=== PATIENT | male | born 1975 | race Caucasian/White ===

== ENCOUNTER 2019-02-17 14:17 | Emergency (ER) | payer BC ==
--- NOTE | 2019-02-17 14:52 | EDM.PDOC ---
ED HPI GENERAL MEDICAL PROBLEM - General Chief Complaint: Lower Extremity Injury/Pain Stated Complaint: L THIGH PAIN Time Seen by Provider: 02/17/19 14:33 Source of Information: Reports: Patient, RN Notes Reviewed - History of Present Illness INITIAL COMMENTS - FREE TEXT/NARRATIVE: 43 year old male with L upper thigh injury. Tripped participating in a kickball tournament 3 days ago with pain L mid ant. thigh. He was feeling better yesterday today, able to work light duty and than tripped again 4 hours ago stepping out of his truck. He now has severe pain L anterior mid thigh worse with any type of motion. No other pain or injury at this time. Left Thigh Pain Score (Numeric/FACES): 9 - Related Data Allergies Allergy/AdvReac Type Severity Reaction Status Date / Time Penicillins Allergy Cannot Verified 02/17/19 14:33 Remember Home Meds: Home Meds Acetaminophen/HYDROcodone [Pax 325-5 MG] 1 tab PO Q4H PRN #20 tablet 02/17/19 [Rx] Acetaminophen/HYDROcodone [Pax 325-5 MG] 1 tab PO Q4H PRN #20 tablet 02/17/19 [Rx] Past Medical History HEENT History: Reports: None Cardiovascular History: Reports: None Respiratory History: Reports: None Genitourinary History: Reports: None Neurological History: Reports: None Psychiatric History: Reports: None Endocrine/Metabolic History: Reports: None Hematologic History: Reports: None Immunologic History: Reports: None Oncologic (Cancer) History: Reports: None Dermatologic History: Reports: None - Infectious Disease History Infectious Disease History: Reports: None - Past Surgical History Head Surgeries/Procedures: Reports: None GI Surgical History: Reports: Hernia Repair/Other Musculoskeletal Surgical History: Reports: Arthroscopic Knee Other Musculoskeletal Surgeries/Procedures:: Right Knee Social & Family History - Tobacco Use Smoking Status *Q: Current Every Day Smoker Years of Tobacco use: 10 Packs/Tins Daily: 0.5 - Caffeine Use Caffeine Use: Reports: Energy Drinks - Recreational Drug Use Recreational Drug Use: No Review of Systems - Review of Systems Review Of Systems: See Below Constitutional: Denies: Chills, Fever Mouth/Throat: Reports: No Symptoms Respiratory: Reports: No Symptoms Cardiovascular: Denies: Chest Pain GI/Abdominal: Denies: Abdominal Pain, Nausea, Vomiting Musculoskeletal: Reports: Leg Pain (severe pain L ant. thigh, worse with motion) Neurological: Reports: Difficulty Walking. Denies: Numbness, Tingling, Weakness ED EXAM, GENERAL - Physical Exam Exam: See Below General Appearance: Alert, Moderate Distress Head: Atraumatic Neck: Supple Respiratory/Chest: No Respiratory Distress Cardiovascular: Regular Rate, Rhythm Extremities: Other (there is localized tenderness of the L ant. mid thigh, no visible swelling or bruising, otherwise nontender) Neurological: Alert, Oriented, No Motor/Sensory Deficits Skin Exam: Warm, Dry, Normal Color Course - Vital Signs Last Recorded V/S: Last Vital Signs Temp 97.4 F 02/17/19 14:36 Pulse 80 02/17/19 14:36 Resp 18 02/17/19 14:36 BP 139/91 H 02/17/19 14:36 Pulse Ox 99 02/17/19 14:36 - Orders/Labs/Meds Orders: Active Orders 24 hr Category Date Time Status Femur wo Cont Lt [MR] Stat Exams 02/17/19 14:53 Taken - Re-Assessments/Exams Free Text/Narrative Re-Assessment/Exam: 02/17/19 17:01 MRI shows edema through out large portion of muscle belly rectus femorus, evidence of injury compatable with tear, see Radiology report for details. Departure - Departure Time of Disposition: 16:37 Disposition: Home, Self-Care 01 Condition: Fair Clinical Impression: Injury of quadriceps muscle - Discharge Information Prescriptions: Acetaminophen/HYDROcodone [Pax 325-5 MG] 1 tab PO Q4H PRN #20 tablet PRN Reason: Pain Acetaminophen/HYDROcodone [Pax 325-5 MG] 1 tab PO Q4H PRN #20 tablet PRN Reason: Pain Instructions: Quadriceps Strain Rehab-SportsMed, Quadriceps Tendon Tear or Disruption Referrals: PCP,None [Ordering Only Provider] - Forms: ED Department Discharge Additional Instructions: Nadeem wrap L thigh until pain resolving, Ice packs and elevation as needed for swelling. tylenol during the day as needed for pain. Hydrocodone if and as needed for severe pain when not working or driving. Follow up medical clinic in about 2 weeks if not much better. - My Orders Last 24 Hours: My Active Orders 02/17/19 14:53 Femur wo Cont Lt [MR] Stat - Assessment/Plan Last 24 Hours: My Active Orders 02/17/19 14:53 Femur wo Cont Lt [MR] Stat
--- NOTE | 2019-02-18 08:40 | MR ---
MRI left thigh Technique: T1, T2 fat-suppressed axial, sagittal and coronal images were obtained. Comparison: No previous study. Findings: Rectus femoris muscle shows edema throughout a large portion of the muscle belly. Findings are felt compatible with partial muscle tear. There is some fluid being seen around the rectus femoris muscle within the intermuscular space. Other portions of the anterior as well as posterior muscle group show no edema. No bone marrow edema is seen. No bony fracture is seen. No additional abnormality is appreciated. Impression: 1. Diffuse edema within the rectus femoris muscle compatible with muscle tear. Diagnostic code #3 MTDD
== END 2019-02-17 17:00 | disposition home or self-care (01) ==
LOC: JD.ED 14:17
DX: S76.102A Unspecified injury of left quadriceps muscle, fascia and tendon, initial encounter (principal); F17.210 Nicotine dependence, cigarettes, uncomplicated; Z88.0 Allergy status to penicillin; W18.40XA Slipping, tripping and stumbling without falling, unspecified, initial encounter; Y93.6A Activity, physical games generally associated with school recess, summer camp and children
CPT/HCPCS: 73718-26-LT; 73718-LT; 99283; 99283-25

== ENCOUNTER 2019-06-03 12:33 | Emergency (ER) | payer BC ==
[2019-06-03] MEDS ORDERED: HYDROmorphone 1 MG/ML Syringe IM ONE (12:49)
[2019-06-03] MEDS ORDERED: Ketorolac 60 MG/2 ML SDV IM ONE (12:49)
[2019-06-03] MEDS ORDERED: Ondansetron 4 MG/2 ML SDV IVPUSH ONE (12:49)
[2019-06-03] MEDS ORDERED: Ondansetron 4 MG Tab.DIS PO ONE (12:55)
--- NOTE | 2019-06-03 12:55 | EDM.PDOC ---
ED HPI GENERAL MEDICAL PROBLEM - General Chief Complaint: Flank Pain Stated Complaint: KIDNEY STONE Time Seen by Provider: 06/03/19 12:40 Source of Information: Reports: Patient History Limitations: Reports: No Limitations - History of Present Illness INITIAL COMMENTS - FREE TEXT/NARRATIVE: Patient is a 44-year-old male who presents with complaints of right flank pain radiating into his groin that started around 1400 yesterday afternoon. Patient does have a history of kidney stones and states this feels very similar to his past episodes. He denies any nausea or vomiting. He has been taken over-the- counter Tylenol for the pain with little relief. Patient was seen here back in March with similar symptoms. He has never required surgical intervention to clear his kidney stones. He is a difficult IV stick and requests to not have IVs done unless absolutely necessary. Right Flank Pain Score (Numeric/FACES): 4 - Related Data Allergies Allergy/AdvReac Type Severity Reaction Status Date / Time Penicillins Allergy Cannot Verified 06/03/19 12:41 Remember Home Meds: Home Meds Dextroamphetamine/Amphetamine [Adderall 20 mg Tablet] 20 mg PO BID 06/03/19 [ History] Hydrocodone/Acetaminophen [[place] 5-325 Tablet] 1 each PO Q4H PRN #10 tablet [Rx] Past Medical History HEENT History: Reports: Impaired Vision Cardiovascular History: Reports: None Respiratory History: Reports: None Genitourinary History: Reports: None, Renal Calculus Neurological History: Reports: None Psychiatric History: Reports: ADD Endocrine/Metabolic History: Reports: None Hematologic History: Reports: None Immunologic History: Reports: None Oncologic (Cancer) History: Reports: None Dermatologic History: Reports: None - Infectious Disease History Infectious Disease History: Reports: Chicken Pox - Past Surgical History Head Surgeries/Procedures: Reports: None HEENT Surgical History: Reports: Oral Surgery, Tonsillectomy GI Surgical History: Reports: Hernia Repair/Other, Other (See Below) Other GI Surgeries/Procedures: tumor removed out of RUQ Musculoskeletal Surgical History: Reports: Arthroscopic Knee Other Musculoskeletal Surgeries/Procedures:: Right Knee Social & Family History - Family History Family Medical History: Noncontributory - Tobacco Use Smoking Status *Q: Current Every Day Smoker Years of Tobacco use: 20 Packs/Tins Daily: 0.5 - Caffeine Use Caffeine Use: Reports: None - Recreational Drug Use Recreational Drug Use: No ED ROS GENERAL - Review of Systems Review Of Systems: Comprehensive ROS is negative, except as noted in HPI. ED EXAM, RENAL/ - Physical Exam Exam: See Below Exam Limited By: No Limitations General Appearance: Alert, WD/WN, Mild Distress Respiratory/Chest: No Respiratory Distress, Lungs Clear, Normal Breath Sounds, No Accessory Muscle Use, Chest Non-Tender Cardiovascular: Normal Peripheral Pulses, Regular Rate, Rhythm, No Edema, No Murmur GI/Abdominal: Normal Bowel Sounds, Soft, Non-Tender Back Exam: Normal Inspection, CVA Tenderness (R). No: CVA Tenderness (L) Neurological: Alert, Oriented, CN II-XII Intact, Normal Cognition Psychiatric: Normal Affect, Normal Mood Skin Exam: Warm, Dry, Intact, Normal Color, No Rash Lymphatic: No Adenopathy Course - Vital Signs Last Recorded V/S: Last Vital Signs Temp 97.3 F 06/03/19 12:38 Pulse 86 06/03/19 12:38 Resp 18 06/03/19 12:38 BP 145/97 H 06/03/19 12:38 Pulse Ox 100 06/03/19 12:38 - Orders/Labs/Meds Labs: Laboratory Tests 06/03/19 Range/Units 13:05 Urine Color Light yellow (Yellow) Urine Appearance Clear (Clear) Urine pH 7.0 (5.0-8.0) Ur Specific [place] 1.015 (1.005-1.030) Urine Protein Negative (Negative) Urine Glucose (UA) Negative (Negative) Urine Ketones Negative (Negative) Urine Occult Blood 3+ H (Negative) Urine Nitrite Negative (Negative) Urine Bilirubin Negative (Negative) Urine Urobilinogen 0.2 (0.2-1.0) Ur Leukocyte Esterase Negative (Negative) Urine RBC 20-30 H (0-5) /hpf Urine WBC 0-5 (0-5) /hpf Ur Epithelial Cells 0-5 (0-5) /hpf Urine Bacteria Rare (FEW) /hpf Urine Mucus Not seen (FEW) /hpf Meds: Medications Discontinued Medications Generic Name Dose Route Start Last Admin Trade Name Freq PRN Reason Stop Dose Admin Hydromorphone HCl 1 mg 06/03/19 12:49 06/03/19 13:04 Dilaudid IM 06/03/19 12:50 1 mg ONETIME ONE Administration Ketorolac Tromethamine 60 mg 06/03/19 12:49 06/03/19 13:03 Toradol IM 06/03/19 12:50 60 mg ONETIME ONE Administration Ondansetron HCl 4 mg 06/03/19 12:49 Zofran IVPUSH 06/03/19 12:50 ONETIME ONE Ondansetron HCl 4 mg 06/03/19 12:55 06/03/19 13:03 Zofran Odt PO 06/03/19 12:56 4 mg ONETIME ONE Administration - Re-Assessments/Exams Free Text/Narrative Re-Assessment/Exam: Patient's exam and history suspicious for kidney stone. I ordered a urinalysis as well as a CT abdomen without contrast. We will give Toradol 60 mg IM, Dilaudid 1 mg IM, and Zofran ODT 4 mg. 06/03/19 13:58 CT of the abdomen shows small nonobstructing stones within each kidney, however there is no evidence of ureteral dilation or ureteral calculi seen. Urinalysis does show 3+ occult blood in the urine leading me to believe that the patient did at one point have a kidney stone that is since passed. he is having some relief after the pain medications given. He did have a similar occurrence in March and he states it took about 2-3 days for the pain to subside after that visit. I will discharge him home with a prescription for [place] and orders to take [id number] Tylenol or ibuprofen. Discharge instructions as noted. Departure - Departure Time of Disposition: 14:01 Disposition: Home, Self-Care 01 Condition: Fair Clinical Impression: Ureteric colic - Discharge Information *PRESCRIPTION DRUG MONITORING PROGRAM REVIEWED*: Yes *COPY OF PRESCRIPTION DRUG MONITORING REPORT IN PATIENT REHANA: No Prescriptions: Hydrocodone/Acetaminophen [[place] 5-325 Tablet] 1 each PO Q4H PRN #10 tablet PRN Reason: Pain Instructions: Kidney Stones, [id number] Referrals: Marcial Leblanc Jr, MD [Primary Care Provider] - Forms: ED Department Discharge Additional Instructions: You were seen in the emergency Department today for right-sided flank pain radiating into your groin. Urinalysis did show blood in your urine which indicates that you likely had a kidney stone. CT was negative for any stones within the ureters so it is likely that you have passed the stone. At this point, I would recommend that you go home and rest. He may use a hot pack to your right flank as needed for pain relief. In addition, I recommend that you use [id number] Tylenol or ibuprofen as needed for pain. I have also sent a prescription for [place] one tablet every 4-6 hours as needed for pain not relieved by [id number] medications. This medication has been sent electronically to [facility]. Please be aware that each tablet of [place] does contain 325 mg of Tylenol. Ensure that she were not taking more than 4000 mg of Tylenol or 3200 mg of ibuprofen in a 24-hour period. If you should experience any new or worsening symptoms, please not hesitate to return to the emergency department. Sepsis Event Note - Evaluation Sepsis Screening Result: No Definite Risk - Focused Exam Vital Signs: Vital Signs Temp Pulse Resp BP Pulse Ox 06/03/19 12:38 97.3 F 86 18 145/97 H 100 Date Exam was Performed: 06/03/19 Time Exam was Performed: 13:58
--- NOTE | 2019-06-03 13:37 | CT ---
CT abdomen and pelvis Technique: Multiple axial sections were obtained from above the dome of the diaphragm inferiorly through the pubic symphysis. Intravenous and oral contrast not utilized. Study has been performed as a ureteral stone protocol. Comparison: Prior CT abdomen and pelvis exam of 04/07/19. Findings: Small nonobstructing stone measuring 2 mm is noted within the mid to upper left kidney. Small nonobstructing stone measuring about 2 mm is seen within the mid right kidney. No ureteral dilatation or ureteral calculi are seen. Other findings: Visualized lung bases show nothing acute. Noncontrast appearance of the liver contains no focal abnormality. Spleen appears within normal limits. Adrenal glands show no nodule. Pancreas is within normal limits. Gallbladder contains no calcified gallstones. Aorta shows no aneurysm. No retroperitoneal adenopathy or mesenteric abnormalities are seen. No pelvic mass or adenopathy is identified. Appendix is seen and is felt to be within normal limits. No free fluid or inflammatory change is seen. Bone window settings were reviewed which appear within normal limits for the patient's age. Impression: 1. Small nonobstructing stone within each kidney. 2. No ureteral dilatation or ureteral calculi are seen. 3. Nothing acute is appreciated on noncontrast CT study of the abdomen and pelvis. Diagnostic code #2 Study was dictated in [place] [employer] Time
== END 2019-06-03 14:05 | disposition home or self-care (01) ==
LOC: JD.ED 12:33
DX: N23 Unspecified renal colic (principal); N20.0 Calculus of kidney; F17.210 Nicotine dependence, cigarettes, uncomplicated; Z88.0 Allergy status to penicillin; Z87.442 Personal history of urinary calculi
CPT/HCPCS: 74176; 81001; 96372; 99284; A9270; J1170; J1885